=== PATIENT | male | born 2000 | race American Indian/Alaskan Native ===

== ENCOUNTER 2020-09-05 20:29 | Emergency (ER) | payer SELFPAY ==
[2020-09-05] MEDS ORDERED: IBUPROFEN 800 MG TAB PO ONE (21:03)
[2020-09-05] MEDS ORDERED: predniSONE 20 MG TAB PO ONE (21:03)
--- NOTE | 2020-09-05 21:08 | Emergency Department Report ---
ED Asthma HPI - General Stated Complaint: ALESIA/ASTHMA Time Seen by Provider: 09/05/20 21:00 Source: patient Limitations: No Limitations - History of Present Illness Initial Comments: Pt is a 20 y/o aam with hx of asthma who presents for cough and wheezing x 2 days. pt states he is out of albuterol nebulizer. states intermittent wheezing, none at this time. He states symptoms are exacerbated by environmental exposure, symptoms are relieved by rest. pt denies cp, no n/v, no fever or chills. pt ambulated into ed, denies activity intolerance. MD Complaint: wheezing - Related Data Previous Rx's Medication Instructions Recorded Last Taken Type Albuterol Mdi (or & Nicu Only) 2 puff IH QID PRN #8.5 gram 09/05/20 Unknown Rx [ProAir HFA Inhaler] predniSONE [Deltasone] 40 mg PO QDAY 5 Days #10 tab 09/05/20 Unknown Rx Allergies Allergy/AdvReac Type Severity Reaction Status Date / Time amoxicillin [From Augmentin] Allergy Rash Verified 09/05/20 21:16 clavulanic acid Allergy Rash Verified 09/05/20 21:16 [From Augmentin] ED Review of Systems ROS: Stated complaint: ALESIA/ASTHMA Other details as noted in HPI Constitutional: denies: chills, fever Eyes: denies: eye pain, eye discharge, vision change ENT: throat pain, congestion. denies: ear pain Respiratory: cough, wheezing. denies: shortness of breath Cardiovascular: denies: chest pain, palpitations Endocrine: no symptoms reported Gastrointestinal: denies: abdominal pain, nausea, diarrhea Genitourinary: denies: urgency, dysuria Musculoskeletal: denies: back pain, joint swelling, arthralgia Skin: denies: rash, lesions Neurological: denies: headache, weakness, paresthesias Psychiatric: denies: anxiety, depression Hematological/Lymphatic: denies: easy bleeding, easy bruising ED Past Medical Hx - Medications Home Medications: Home Medications Medication Instructions Recorded Confirmed Last Taken Type Albuterol Mdi (or & Nicu Only) 2 puff IH QID PRN #8.5 gram 09/05/20 Unknown Rx [ProAir HFA Inhaler] predniSONE [Deltasone] 40 mg PO QDAY 5 Days #10 tab 09/05/20 Unknown Rx ED Physical Exam - General General appearance: alert, in no apparent distress - Head Head exam: Present: atraumatic, normocephalic - Eye Eye exam: Present: normal appearance, EOMI Pupils: Present: normal accommodation - ENT ENT exam: Present: mucous membranes moist - Neck Neck exam: Present: normal inspection, full ROM. Absent: tenderness, lymphadenopathy - Respiratory Respiratory exam: Present: normal lung sounds bilaterally. Absent: respiratory distress, wheezes, stridor, chest wall tenderness - Cardiovascular Cardiovascular Exam: Present: regular rate, normal rhythm, normal heart sounds. Absent: systolic murmur, diastolic murmur, rubs, gallop - GI/Abdominal GI/Abdominal exam: Present: soft, normal bowel sounds. Absent: distended, tenderness, bruit, hernia - Rectal Rectal exam: Present: deferred - Extremities Exam Extremities exam: Present: normal inspection, full ROM. Absent: tenderness - Back Exam Back exam: Present: normal inspection, full ROM. Absent: tenderness, CVA tenderness (R), CVA tenderness (L) - Neurological Exam Neurological exam: Present: alert, oriented X3 - Psychiatric Psychiatric exam: Present: normal affect, normal mood - Skin Skin exam: Present: warm, dry, intact, normal color. Absent: rash ED Course Vital Signs 09/05/20 09/05/20 21:13 21:17 Temperature 98.0 F Pulse Rate 62 Respiratory 18 18 Rate Blood Pressure 126/69 O2 Sat by Pulse 96 Oximetry ED Medical Decision Making - Medical Decision Making There is no wheezing, no sob, no stridor, cough is nonproductive, pt is speaking in complete and full sentences with no resp distress, pt is ambulatory with steady gain in waiting with no increase in symptoms, ENT exam in unremarkable, subjective chest wall pain with deep palpation, there is no crepitus , no echymosis, no bruising, no step off no swelling. plan: refill albuterol, nsaids prn chest wall pain, short burst steroids, follow up with pcp , pt verbalized agreement and understanding of discharge plan. Critical care attestation.: If time is entered above; I have spent that time in minutes in the direct care of this critically ill patient, excluding procedure time. ED Disposition Clinical Impression: Asthma Qualifiers: Asthma severity: mild Asthma persistence: intermittent Asthma complication type: uncomplicated Qualified Code(s): J45.20 - Mild intermittent asthma, uncomplicated Disposition: DC-01 TO HOME OR SELFCARE Is pt being admited?: No Does the pt Need Aspirin: No Condition: Stable Instructions: Asthma (ED), Asthma, Adult, Asthma Attack Prevention, Adult Prescriptions: predniSONE [Deltasone] 40 mg PO QDAY 5 Days #10 tab Albuterol Mdi (or & Nicu Only) [ProAir HFA Inhaler] 2 puff IH QID PRN #8.5 gram PRN Reason: Shortness Of Breath Referrals: PRIMARY MD DIVYA [Primary Care Provider] - 3-5 Days MISTY BHAT MD [Staff Physician] - 3-5 Days Forms: Work/School Release Form(ED) Time of Disposition: 21:43
[2020-09-05 21:39] VITALS: BP 126/69
== END 2020-09-05 21:57 | disposition home or self-care (01) ==
LOC: EDBD 20:29 → ED 20:29
DX: J45.909 Unspecified asthma, uncomplicated (principal); Z79.899 Other long term (current) drug therapy; Z88.0 Allergy status to penicillin; Z88.8 Allergy status to other drugs, medicaments and biological substances
CPT/HCPCS: 99282; J7512